=== PATIENT | female | born 1995 | race Caucasian/White ===

== ENCOUNTER 2017-06-13 20:24 | Emergency (ER) | payer OTHER ==
[2017-06-13 20:36] VITALS: BP 121/77; BMI 21.6
[2017-06-13 21:01] LABS: BILIRUBIN,URINE NEGATIVE (NEGATIVE); BLOOD/HEMOGLOBIN,URINE 2+ (NEGATIVE); GLUCOSE, URINE NEGATIVE (NEGATIVE); KETONES,URINE NEGATIVE (NEGATIVE); LEUKOCYTE ESTERASE ,URINE 3+ (NEGATIVE); NITRITES,URINE POSITIVE (NEGATIVE); PROTEIN,URINE 2+ (NEGATIVE); UROBILINOGEN,URINE NORMAL (NORMAL)
[2017-06-13 21:12] LABS: APPEARANCE,URINE CLOUDY (CLEAR); COLOR,URINE YELLOW (YELLOW)
[2017-06-13 21:13] LABS: BACTERIA,URINE 2+ /HPF (NEGATIVE); RBC,URINE TNTC /HPF (NONE SEEN); SQUAMOUS EPITHELIAL CELL,UR FEW /HPF (NEGATIVE)
--- NOTE | 2017-06-13 21:21 | DR.GENAD ---
HPI - PCP Primary Care Physician: NFD - Complaint/Symptoms Chief Complaint Doctors Comments: Dysuria over 2 weeks duration. She was seen and treated at [facility] ED about 2 weeks ago for this complain. She has finished the prescribed abx. Her s/s got better but has recurred. She denies urgency or fever but admits to frequency. There is no hematuria. Chief Complaint:: UTI Self Treatment fo Chief Complaint: Taking meds that she received from [facility]. - Nurses notes reviewed Nurses Notes Review: Yes - Source History Provided: Patient - Mode of Arrival Mode of Arrival: Ambulatory - Timing Onset of Chief Complaint: 05/27/17 PMH - PMH Past Medical History: No Past Medical History Comment: None Past Surgical History: No Past Surgical History Comment: None - Family History History of Family Medical Conditions: Yes Family Medical History Comment: None that she is aware of - Social History Does patient currently use any type of tobacco product: No Have you used tobacco products in the last 12 months: No Type of Tobacco Use: None How many years tobacco product used: 0 Does any household member use tobacco: Yes Alcohol Use: None Do you use any recreational Drugs:: No Lives With: Spouse Lives Where: Home - infectious screening In the last 2 months have you had wt loss of >10#?: NO Have you had fever, night sweats or hemotysis?: No Have you traveled outside the country in the last 6 months?: No Isolation: Standard ROS - Review of Systems Constitutional: No Symptoms Reported Eyes: No Symptoms Reported ENTM: No Symptoms Reported Respiratoy: No Symptoms Reported Cardiovascular: No Symptoms Reported Gastrointestinal/Abdominal: No Symptoms Reported Genitourinary: Dysuria, Frequency Neurological: No Symptoms Reported Musculoskeletal: No Symptoms Reported Integumentary: No Symptoms Reported Hematologic/Lymphatic: No Symptoms Reported Endocrine: No Symptoms Reported Psychiatric: No Symptoms Reported PE - Vital Signs Vitals: Temperature 98.3 F Pulse Rate 91 Respiratory Rate 20 Blood Pressure 121/77 O2 Sat by Pulse Oximetry 99 - General Limitations: No Limitations General Appearance: Alert, In No Apparent Distress - Head Head Exam: Normal Inspection - Eyes Eye exam: Normal Appearance - ENT ENT Exam: Normal Exam - Chest Chest Inspection: Normal Inspection - Respiratory Respiratory Exam: Normal Lung Sounds Bilat - Cardiovascular Cardiovascular Exam: Regular Rate, Normal Rhythm, +S1, +S2 - Abdominal Exam Abdominal Exam: Normal Inspection, Normal Bowel Sounds, Soft - Extremities Extremities Exam: Normal Inspection - Back Back Exam: Normal Inspection - Neurologic Neurological Exam: Alert, Oriented X3 - Psychiatric Psychiatric Exam: Normal Affect, Normal Mood - Skin Skin Exam: Warm, Dry, Intact, Normal Color ROR - Labs Reviewed Laboratory Results Reviewed?: Yes Laboratory: Specimen Type Clean catch urine 06/13/17 20:45 Urine Color Yellow (YELLOW) 06/13/17 20:45 Urine Appearance Cloudy (CLEAR) 06/13/17 20:45 Urine pH 7.0 (5.0 - 8.0) 06/13/17 20:45 Ur Specific [place] 1.010 (1.000-1.030) 06/13/17 20:45 Urine Protein 2+ (NEGATIVE) 06/13/17 20:45 Urine Glucose (UA) Negative (NEGATIVE) 06/13/17 20:45 Urine Ketones Negative (NEGATIVE) 06/13/17 20:45 Urine Occult Blood 2+ (NEGATIVE) 06/13/17 20:45 Urine Nitrite Positive (NEGATIVE) 06/13/17 20:45 Urine Bilirubin Negative (NEGATIVE) 06/13/17 20:45 Urine Urobilinogen Normal (NORMAL) 06/13/17 20:45 Ur Leukocyte Esterase 3+ (NEGATIVE) 06/13/17 20:45 Urine RBC Tntc /HPF (NONE SEEN) 06/13/17 20:45 Urine WBC Tntc /HPF (NONE SEEN) 06/13/17 20:45 Ur Squamous Epith Cells Few /HPF (NEGATIVE) 06/13/17 20:45 Urine Bacteria 2+ /HPF (NEGATIVE) 06/13/17 20:45 Ur Culture Indicated? Yes/culture set up 06/13/17 20:45 - Diagnosis Discharge Problem: Lower urinary tract infection - Discharge Plan Disposition: 01 HOME, SELF-CARE Condition: Stable - Follow ups/Referrals Follow ups/Referrals: NFD,None [Primary Care Provider] - 3 days - Instructions Instructions: Urinary Tract Infection, Adult, [id number]
[2017-06-13] MEDS ORDERED: CIPRO TAB 500 MG PO ONE ×2 (21:31→21:40)
[2017-06-13] MEDS ORDERED: PYRIDIUM PO ONE ×2 (21:32→21:40)
== END 2017-06-13 21:45 | disposition home or self-care (01) ==
LOC: ER 20:42
DX: N39.0 Urinary tract infection, site not specified (principal); B96.29 Other Escherichia coli [E. coli] as the cause of diseases classified elsewhere
CPT/HCPCS: 81001; 87086; 87088; 87186; 99282